=== PATIENT | female | born 1965 | race Caucasian/White ===

== ENCOUNTER 2023-10-24 12:35 | Emergency (ER) | payer BC ==
--- NOTE | 2023-10-24 14:27 | RAD REPORT ---
EXAM DESCRIPTION: RAD - Pelvis - 10/24/2023 1:55 pm CLINICAL HISTORY: PAIN COMPARISON: <Comparisons> FINDINGS: No fracture, dislocation or radiographic evidence of AVN. IMPRESSION: Negative study.
--- NOTE | 2023-10-24 14:28 | RAD REPORT ---
EXAM DESCRIPTION: RAD - Hip Right 2 View - 10/24/2023 1:55 pm CLINICAL HISTORY: PAIN COMPARISON: <Comparisons> FINDINGS: Moderate osteoarthritis of the right hip. No fracture, dislocation or AVN pattern is seen.
--- NOTE | 2023-10-24 14:43 | EDPHYS ---
Physician Documentation [facility] Name: Roselia Aj Age: 58 yrs Sex: Female : 1965 Arrival Date: 10/24/2023 Time: 12:35 Bed 10 Private MD: ED Physician Dannie Mandujano HPI: 10/23 12:58 This 58 yrs old Female presents to ER via Ambulatory with complaints of Fall Injury. kb 12:58 Pt is a 58 year old female who presents for pain to right buttock after falling approx kb 4ft from ladder. States she can walk fine, but has pain with any pressure to that buttock. Denies any other injury. Denies hitting head or loc. . Historical: - Allergies: 12:47 No Known Allergies; mb9 - Home Meds: 12:47 losartan 25 mg oral tablet [Active]; mb9 - PMHx: 12:47 Hypertensive disorder; mb9 - PSHx: 12:47 None; mb9 - Immunization history:: Adult Immunizations up to date. - Infectious Disease History:: Denies. - Social history:: Smoking status: Patient denies any tobacco usage or history of. ROS: 12:57 Constitutional: As per HPI kb Exam: 12:57 Constitutional: This is a well developed, well nourished patient who is awake, alert, kb and in no acute distress. Head/Face: Normocephalic, atraumatic. ENT: Moist Mucous membranes Chest/axilla: Normal chest wall appearance and motion. Cardiovascular: Regular rate Respiratory: Respirations even and unlabored. No increased work of breathing. Talking in full sentences Abdomen/GI: Soft, non-tender. No distention Back: No spinal tenderness. No costovertebral tenderness. Full range of motion. Skin: Warm, dry with normal turgor. Normal color. MS/ Extremity: Pulses equal, no cyanosis. Neurovascular intact. Full, normal range of motion. Neuro: Awake and alert, GCS 15, oriented to person, place, time, and situation. Moves all extremities. Normal gait. 12:57 Musculoskeletal/extremity: Extremities: grossly normal except: noted in the right gluteus demetrice: pain, ROM: intact in all extremities, Circulation is intact in all extremities. Sensation intact. Weight bearing: able to fully bear weight, Vital Signs: 12:46 BP 162 / 83; Pulse 86; Resp 18; Temp 98; Pulse Ox 98% ; Weight 53.52 kg; Height 5 ft. 2 mb9 in. ; Pain 0/10; 14:48 BP 131 / 78; Pulse 75; Resp 16; Pulse Ox 100% on R/A; mb9 12:46 Body Mass Index 21.58 (53.52 kg, 157.48 cm) mb9 12:46 Pain Scale: Adult mb9 MDM: 12:41 Patient medically screened. kb 12:59 Differential diagnosis: contusion, fracture. Data reviewed: vital signs, nurses notes. kb 14:42 Counseling: I had a detailed discussion with the patient and/or guardian regarding the kb historical points, exam findings, and any diagnostic results supporting the discharge/admit diagnosis, radiology results, the need for outpatient follow up, a family practitioner, to return to the emergency department if symptoms worsen or persist or if there are any questions or concerns that arise at home. 10/23 12:45 Order name: Pelvis XRAY; Complete Time: 14:35 kb 10/23 12:45 Order name: Hip Right 2 View XRAY; Complete Time: 14:35 kb Administered Medications: No medications were administered Disposition: 19:03 Co-signature as Attending Physician, Dannie Mandujano MD I reviewed the patient's care rn provided by the Advanced Practice Provider and agree with the diagnosis and treatment plan. Disposition Summary: 10/24/23 14:43 Discharge Ordered Notes: Location: Home kb Condition: Stable kb Diagnosis - Contusion of right hip kb Followup: kb - With: Emergency Department - When: As needed - Reason: Worsening of condition Followup: kb - With: Private Physician - When: 2 - 3 days - Reason: Recheck today's complaints, Continuance of care, Re-evaluation by your physician Discharge Instructions: - Discharge Summary Sheet kb - Contusion, [id number] kb Forms: - Medication Reconciliation Form kb - Antibiotic Education kb - Prescription Opioid Use kb - Patient Portal Instructions kb - Leadership Thank You Letter kb Prescriptions: - Diclofenac Sodium 75 mg Oral tablet, delayed release (enteric coated) - take 1 tablet ORAL route 2 times per day As needed; 30 tablet; Refills: 0, kb Product Selection Permitted - orphenadrine citrate 100 mg Oral Tablet Sustained Release - take 1 tablet ORAL route 2 times per day As needed; 20 tablet; Refills: 0, kb Product Selection Permitted Signatures: Dispatcher [employer] Jodee Medeiros, [employer] DISPATCH MANAGER-Dannie Connell MD MD rn Wilkerson, Nataly Jacobs RN RN mb9
--- NOTE | 2023-10-24 14:43 | ER ---
Nurse's Notes [facility] Name: Roselia Aj Age: 58 yrs Sex: Female : 1965 Arrival Date: 10/24/2023 Time: 12:35 Bed 10 Private MD: Diagnosis: Contusion of right hip Presentation: 10/23 12:46 Chief complaint: Patient states: "I was boarding up my house and fell about 4 ft off a mb9 ladder. I didn't hit my head or lose consciousness. My right buttock hurts when I bend over.". Coronavirus screen: Vaccine status: Patient reports receiving the 2nd dose of the covid vaccine. Ebola Screen: No symptoms or risks identified at this time. Initial Sepsis Screen: Does the patient meet any 2 criteria? No. Patient's initial sepsis screen is negative. Does the patient have a suspected source of infection? No. Patient's initial sepsis screen is negative. Risk Assessment: Do you want to hurt yourself or someone else? Patient reports no desire to harm self or others. Onset of symptoms was October 24, 2023. 12:46 Method Of Arrival: Ambulatory mb9 12:46 Acuity: MACKENZIE 4 mb9 Triage Assessment: 12:47 General: Appears in no apparent distress. Behavior is cooperative. Pain: Complains of mb9 pain in buttocks Pain radiates to right leg Pain currently is 0 out of 10 on a pain scale. Quality of pain is described as sharp, shooting, Pain began suddenly, Is continuous. EENT: No signs and/or symptoms were reported regarding the EENT system. Neuro: Dickson Agitation-Sedation Scale (RASS): 0 - Alert and Calm Level of Consciousness is awake, alert, obeys commands, Oriented to person, place, time, situation, Appropriate for age. Cardiovascular: Patient's skin is warm and dry. Respiratory: Airway is patent Respiratory effort is even, unlabored, Respiratory pattern is regular, symmetrical. GI: No signs and/or symptoms were reported involving the gastrointestinal system. : No signs and/or symptoms were reported regarding the genitourinary system. Derm: Skin is pink, warm \\T\\ dry. Musculoskeletal: Range of motion: limited in right hip. Historical: - Allergies: 12:47 No Known Allergies; mb9 - Home Meds: 12:47 losartan 25 mg oral tablet [Active]; mb9 - PMHx: 12:47 Hypertensive disorder; mb9 - PSHx: 12:47 None; mb9 - Immunization history:: Adult Immunizations up to date. - Infectious Disease History:: Denies. - Social history:: Smoking status: Patient denies any tobacco usage or history of. Screenin:49 [facility] ED Fall Risk Assessment (Adult) History of falling in the last 3 months, mb9 including since admission Yes- single mechanical fall (1 pt) Confusion or Disorientation No (0 pts) Intoxicated or Sedated No (0 pts) Impaired Gait No (0 pts) Mobility Assist Device Used No (0 pt) Altered Elimination No (0 pt) Score/Fall Risk Level 0 - 2 = Low Risk Oriented to surroundings, Maintained a safe environment, Educated pt \\T\\ family on fall prevention, incl call for assistance when getting out of bed. Abuse screen: Denies threats or abuse. Nutritional screening: No deficits noted. Tuberculosis screening: No symptoms or risk factors identified. Assessment: 14:02 Reassessment: No changes from previously documented assessment. Patient and/or family mb9 updated on plan of care and expected duration. Pain level reassessed. Patient is alert, oriented x 3, equal unlabored respirations, skin warm/dry/pink. Vital Signs: 12:46 BP 162 / 83; Pulse 86; Resp 18; Temp 98; Pulse Ox 98% ; Weight 53.52 kg; Height 5 ft. 2 mb9 in. ; Pain 0/10; 14:48 BP 131 / 78; Pulse 75; Resp 16; Pulse Ox 100% on R/A; mb9 12:46 Body Mass Index 21.58 (53.52 kg, 157.48 cm) mb9 12:46 Pain Scale: Adult mb9 ED Course: 12:39 Patient arrived in ED. mg5 12:41 Jodee Eddy [facility]-C [facility] kb 12:41 Dannie Mandujano MD is Attending Physician. kb 12:41 Nataly Calhoun RN is Primary Nurse. mb9 12:46 Arm band placed on. mb9 12:47 Triage completed. mb9 12:49 Bed in low position. Call light in reach. Side rails up X 1. Provided Education on: mb9 press call light if needing anything. Client placed on continuous cardiac and pulse oximetry monitoring. NIBP monitoring applied. 12:49 No provider procedures requiring assistance completed. mb9 13:57 Pelvis XRAY In Process Unspecified. EDMS 13:57 Hip Right 2 View XRAY In Process Unspecified. EDMS 14:48 Patient did not have IV access during this emergency room visit. mb9 Administered Medications: No medications were administered Medication: 12:49 VIS not applicable for this client. mb9 Outcome: 14:43 Discharge ordered by . rodney 14:48 Discharged to home ambulatory, mb9 14:48 Condition: stable 14:48 Discharge instructions given to patient, Instructed on discharge instructions, follow up and referral plans. Demonstrated understanding of instructions, follow-up care, medications, Prescriptions given X 2, 14:49 Patient left the ED. mb9 Signatures: Dispatcher [employer] EDJodee Yanes, [employer]PL[employer] FIRST OFFICER-C [employer] FIRST OFFICER-Nataly Alarcon, RN RN mb9 Radha Sheikh mg5
[2023-10-24 15:04] VITALS: BP 131/78; TEMP 98; O2SAT 100
== END 2023-10-24 14:49 | disposition home or self-care (01) ==
LOC: ER 12:35
DX: S70.01XA Contusion of right hip, initial encounter (principal); W11.XXXA Fall on and from ladder, initial encounter
CPT/HCPCS: 72170; 99283